=== PATIENT | female | born 1960 | race Caucasian/White ===

== ENCOUNTER → 2016-10-30 | Outpatient (CLI) | payer BC ==
--- NOTE | 2016-10-30 10:27 | US ---
EXAMINATION TYPE: US thyroid st tissue head/neck DATE OF EXAM: 10/30/2016 9:15 AM COMPARISON: None CLINICAL HISTORY: Hypothyroidism E03.9, R94.6 Abn Thyroid function. Abn thyroid labs, on Synthyroid GLAND SIZE: Right Lobe: 3.9 x 1.7 x 1.3 cm Overall Parenchyma: heterogenous Left Lobe: 2.7 x 0.8 x 0.9 cm Overall Parenchyma: heterogeneous Isthmus Thickness: 0.2 cm NODULES RIGHT: # of nodules measured on right: 2 1. 0.6 X 0.5 x 0.6 cm isoechoic solid nodule at the lower pole with well-defined margins; peripher al calcification. This nodule is taller than wide and shows no intranodular vascularity. Prior size: No Prior 2. 1.1 X 1.0 x 0.5 cm hypoechoic solid nodule at the mid pole with well-defined margins. This nodul e is taller than wide and shows no intranodular vascularity. Prior size: No prior LEFT: # of nodules measured on left: 0 ISTHMUS: # of nodules measured in the isthmus: 0 Bilateral neck scanned, no evidence of lymphadenopathy. Bilateral heterogenous lobes. No prominent nodules seen in the left lobe. IMPRESSION: Right lobe thyroid nodules. Monitoring with ultrasound is recommended.
== END | disposition home or self-care (01) ==
LOC: RADUSWWP 08:52
PROVIDERS: ATTEND Family Medicine
DX: E04.2 Nontoxic multinodular goiter (principal)
CPT/HCPCS: 76536

== ENCOUNTER → 2018-08-05 | Outpatient (CLI) | payer BC ==
--- NOTE | 2018-08-08 12:43 | MM ---
Reason for exam: screening (asymptomatic). Last mammogram was performed 2 years and 10 months ago. History: Patient is postmenopausal. Took hormonal contraceptives for 6 years beginning at age 22. MG 3D Screening Mammo W/Cad Bilateral CC and MLO view(s) were taken. Prior study comparison: October 08, 2015, bilateral MG 3d screening mammo w/cad. September 27, 2009, left breast mammogram dig work up. The breast tissue is heterogeneously dense. This may lower the sensitivity of mammography. No discrete abnormality. No significant changes when compared with prior studies. ASSESSMENT: Negative, BI-RAD 1 RECOMMENDATION: Routine screening mammogram of both breasts in 1 year.
== END | disposition home or self-care (01) ==
LOC: RADMAMWWP 07:36
PROVIDERS: ATTEND Internal Medicine
DX: Z12.31 Encounter for screening mammogram for malignant neoplasm of breast (principal)
CPT/HCPCS: 77063; 77067

== ENCOUNTER → 2020-11-19 | Outpatient (CLI) | payer BC | END | disposition home or self-care (01) | LOC: LABWHC1 11:32 | PROVIDERS: ATTEND Internal Medicine | DX: E03.9 Hypothyroidism, unspecified (principal) | CPT/HCPCS: 36415; 84443 ==